=== PATIENT | female | born 1955 | race Caucasian/White ===

== ENCOUNTER → 2019-04-25 11:37 | Outpatient (BNVA) | payer OTHER, SELFPAY | PROVIDERS: Family Provider Nurse Practitioner Family; PCP Nurse Practitioner Family; Visit Provider Nurse Practitioner Family | DX: E03.9 Hypothyroidism, unspecified (principal) | CPT/HCPCS: 80048; 80061; 82044; 83036; 84443 ==

== ENCOUNTER → 2019-05-11 10:38 | Outpatient (BNVA) | payer OTHER, SELFPAY | PROVIDERS: Family Provider Nurse Practitioner Family; PCP Nurse Practitioner Family; Visit Provider Nurse Practitioner Family | DX: R10.2 Pelvic and perineal pain (principal); N94.89 Other specified conditions associated with female genital organs and menstrual cycle; N76.0 Acute vaginitis | CPT/HCPCS: 87070 ==

== ENCOUNTER 2019-05-31 13:53 | Outpatient (CLI) | payer OTHER, SELFPAY ==
--- NOTE | 2019-05-31 14:15 | US_ITS ---
WS: [id number] TRANSABDOMINAL PELVIC AND TRANSVAGINAL PELVIC ULTRASOUND HISTORY: pelvic pain COMPARISON: None available. Uterus: 7.1 cm x 4.5 cm x 3.4 cm. Normal size anteverted uterus. Myometrium is heterogeneous. No incr eased vascularity. Endometrium: 1.3 cm. Abnormal appearance of the endometrium. There is poor distinction between the en dometrium and the junctional zone. Mixed echogenicity along the anterior myometrium measures 9 x 6 x 8 mm. This may be a portion of the endometrium or fibroid. Right ovary: 2.9 cm x 2.3 cm x 1.2 cm. Normal vascularity and size. Left ovary: 2.8 cm x 1.2 cm x 1.4 cm. Normal vascularity and size. No free fluid. US/US pelvic with transvaginal IMPRESSION: 1. Abnormal endometrium and the adjacent anterior junctional zone and myometri um. Changes may be related to endometrial neoplasm with extension into the endo metrial or a submucosal fibroid. Recommend IT BUSINESS SYSTEMS ANALYST consultation. 2. Negative adnexa and ovaries.
== END 2019-05-31 13:54 | disposition home or self-care (01) ==
LOC: RADWPI 13:55
PROVIDERS: Family Provider Nurse Practitioner Family; PCP Nurse Practitioner Family; Visit Provider Nurse Practitioner Family
DX: R10.2 Pelvic and perineal pain (principal)
CPT/HCPCS: 76830; 76856

== ENCOUNTER → 2019-08-02 09:10 | Outpatient (BNVA) | payer OTHER, SELFPAY | PROVIDERS: Family Provider Nurse Practitioner Family; PCP Nurse Practitioner Family; Visit Provider Nurse Practitioner Family | DX: E03.9 Hypothyroidism, unspecified (principal); E11.9 Type 2 diabetes mellitus without complications; Z79.4 Long term (current) use of insulin | CPT/HCPCS: 83036; 84443 ==

== ENCOUNTER → 2019-09-19 09:33 | Outpatient (BNVA) | payer OTHER, SELFPAY | PROVIDERS: Family Provider Nurse Practitioner Family; PCP Nurse Practitioner Family; Visit Provider Nurse Practitioner Family | DX: E03.9 Hypothyroidism, unspecified (principal) | CPT/HCPCS: 84443 ==

== ENCOUNTER → 2019-12-07 10:19 | Outpatient (BNVA) | payer MEDICARE, SELFPAY | PROVIDERS: Family Provider Nurse Practitioner Family; PCP Nurse Practitioner Family; Visit Provider Nurse Practitioner Family | DX: E11.9 Type 2 diabetes mellitus without complications (principal); E03.9 Hypothyroidism, unspecified; I10 Essential (primary) hypertension; Z79.4 Long term (current) use of insulin | CPT/HCPCS: 80053; 83036; 84443 ==

== ENCOUNTER → 2020-03-20 10:03 | Outpatient (BNVA) | payer MEDICARE, SELFPAY | PROVIDERS: Family Provider Nurse Practitioner Family; PCP Nurse Practitioner Family; Visit Provider Nurse Practitioner Family | DX: E03.9 Hypothyroidism, unspecified (principal); E11.9 Type 2 diabetes mellitus without complications; E78.5 Hyperlipidemia, unspecified; I10 Essential (primary) hypertension; Z79.4 Long term (current) use of insulin; F32.9 Major depressive disorder, single episode, unspecified | CPT/HCPCS: 80053; 80061; 82043; 83036; 84443 ==

== ENCOUNTER → 2020-06-26 09:44 | Outpatient (BNVA) | payer MEDICARE, SELFPAY | PROVIDERS: Family Provider Nurse Practitioner Family; PCP Nurse Practitioner Family; Visit Provider Nurse Practitioner Family | DX: E11.9 Type 2 diabetes mellitus without complications (principal); Z79.4 Long term (current) use of insulin | CPT/HCPCS: 82043; 83036 ==

== ENCOUNTER → 2021-01-02 11:01 | Outpatient (BNVA) | payer MEDICARE, SELFPAY | PROVIDERS: Family Provider Nurse Practitioner Family; PCP Nurse Practitioner Family; Visit Provider Nurse Practitioner Family | DX: I10 Essential (primary) hypertension (principal); E03.9 Hypothyroidism, unspecified; E78.5 Hyperlipidemia, unspecified; E11.9 Type 2 diabetes mellitus without complications; Z79.4 Long term (current) use of insulin | CPT/HCPCS: 80053; 80061; 83036; 84443 ==

== ENCOUNTER → 2021-03-20 13:43 | Outpatient (BNVA) | payer MEDICARE, SELFPAY | PROVIDERS: Family Provider Nurse Practitioner Family; PCP Nurse Practitioner Family; Visit Provider Nurse Practitioner Family | DX: R30.9 Painful micturition, unspecified (principal); B37.3 Candidiasis of vulva and vagina | CPT/HCPCS: 81000 ==

== ENCOUNTER → 2021-03-31 08:33 | Outpatient (BNVA) | payer MEDICARE, SELFPAY | PROVIDERS: Family Provider Nurse Practitioner Family; PCP Nurse Practitioner Family; Visit Provider Nurse Practitioner Family | DX: E11.9 Type 2 diabetes mellitus without complications (principal); Z79.4 Long term (current) use of insulin; E03.9 Hypothyroidism, unspecified; E78.2 Mixed hyperlipidemia; I10 Essential (primary) hypertension; R53.83 Other fatigue | CPT/HCPCS: 80053; 80061; 82043; 83036; 84443; 85025 ==

== ENCOUNTER 2021-05-15 14:02 | Outpatient (CLI) | payer MEDICARE, SELFPAY ==
--- NOTE | 2021-05-15 14:45 | US_ITS ---
WS: [id number] THYROID ULTRASOUND HISTORY: R79.89 - Other specified abnormal findings of blood chemi... COMPARISON: None available. Right lobe: 1.2 cm x 1.6 cm x 4.4 cm (w x ap x l). Volume: 4.6 cm3. Normal size and echotexture. No significant are dominant nodules are present. Left lobe: 1.2 cm x 1.4 cm x 3.6 cm (w x ap x l). Volume: 3.0 cm3. Heterogeneous, predominantly hyperechoic gland. No discrete nodules. Variable density throughout the gland. Isthmus: 0.4 cm. There is an ovoid predominantly hyperechoic nodule in the LEFT isthmus measuring 1.1 x 0.5 x 1.2 cm. Similar to the prior study with only minimal increase in size. Smaller nodule in the RIGHT isthmus. US/US thyroid [id number] IMPRESSION: 1. Mildly heterogeneous gland with multiple small bilateral nodules. 2. Hyperechoic nodule in the LEFT isthmus has very slightly increased in size since the prior study now measuring 1.1 x 0.5 x 1.2 cm. Recommend 12 month foll ow-up.
== END 2021-05-15 14:03 | disposition home or self-care (01) ==
PROVIDERS: PCP Nurse Practitioner Family; Visit Provider Nurse Practitioner Family
DX: R79.89 Other specified abnormal findings of blood chemistry (principal); E04.2 Nontoxic multinodular goiter
CPT/HCPCS: 76536

== ENCOUNTER → 2021-05-22 10:59 | Outpatient (BNVA) | payer MEDICARE, SELFPAY | PROVIDERS: PCP Nurse Practitioner Family; Visit Provider Nurse Practitioner Family | DX: E03.9 Hypothyroidism, unspecified (principal); L71.9 Rosacea, unspecified | CPT/HCPCS: 84443 ==

== ENCOUNTER 2021-06-10 06:30 | Day surgery (SDC) | payer MEDICARE, SELFPAY ==
[2021-06-08 14:52] VITALS: BMI 29.9
[2021-06-10] MEDS: sodium chloride 0.9% 1,000 ML 30 ML IV (07:15)
[2021-06-10 07:16] VITALS: BP 198/95; PULSE 69; RESP 17; TEMP 36.9; O2SAT 97
--- NOTE | 2021-06-10 07:23 | ANES.PREANE2 ---
Pre-Anesthetic Assessment Height/Weight: Height 1.65 m Weight 81.647 kg Temp Pulse Resp BP Pulse Ox 98.5 F 69 17 198/95 97 06/10/21 07:16 06/10/21 07:16 06/10/21 07:16 06/10/21 07:16 06/10/21 07:16 Preop Diagnosis: diagnostic Operation Date: 06/10/21 08:00 Proposed Procedures p EGD Dilation W/ Balloon [id number]/r13.10/r10.32(Not Applicable) - Lauro Landa MD s Colonoscopy(Not Applicable) - Lauro Landa MD Familial anesthetic complications: None Was Beta Diana taken within 24 hours: Yes Was Clonidine taken within 24 hours: N/A Last intake: Intake Last Liquid Date 06/09/21 Last Liquid Time 20:00 Last Solid Date 06/08/21 Last Solid Time 19:00 Social No alcohol and No tobacco Exam alert, oriented x 3, clear to auscultation bilaterally and regular rate & rhythm Airway Submandibular: within normal limits Cervical ROM: within normal limits Mallampati: Class II Dentition: full History/ROS No significant complaints Pulmonary None reported CV/HEM Hypertension None reported Hepatic None reported GI Gastroesophageal Reflux Disease Esophageal stricture Metabolic Diabetes Mellitus and Thyroid Disease [facility] [place] None reported Neuropsych Depression Anesthetic Plan ASA status: 2 Anesthesia: Anesthesia Evaluation, General and MAC Other: I discussed with the patient risks, goals, and benefits of MAC and general anesthesia. We discussed spectrum of MAC anesthesia including conversion to general as well as possibility of recall of intraoperative stimuli including discomfort/pain. Patient agrees to proceed with MAC. Risk of > 500 ml blood loss (7ml/kg in children): No Medications/Allergies Home Medications Medication Instructions Recorded Confirmed Last Taken Type levothyroxine 75 mcg capsule 75 mcg PO DAILY #90 cap 04/03/21 06/10/21 06/09/21 Rx dupilumab 300 mg/2 mL subcutaneous 300 mg SUBCUT .COMPLEX ml 04/24/21 06/10/21 06/09/21 History pen injector (Dupixent) ketoconazole 2 % shampoo See Rx Instructions .ROUTE 05/14/21 06/10/21 06/09/21 Rx .COMPLEX #120 ml amlodipine 10 mg tablet 10 mg PO DAILY 06/08/21 06/10/21 06/09/21 History hydrochlorothiazide 25 mg tablet 25 mg PO DAILY 06/08/21 06/10/21 06/09/21 History lisinopril 40 mg tablet 40 mg PO BID 06/08/21 06/10/21 06/09/21 History lovastatin 40 mg tablet 40 mg PO DAILY 06/08/21 06/10/21 06/09/21 History metformin 1,000 mg tablet 1,000 mg PO BID 06/08/21 06/10/21 06/09/21 History metoprolol tartrate 100 mg tablet 100 mg PO DAILY 06/08/21 06/10/21 06/09/21 History omeprazole 40 mg capsule,delayed 40 mg PO DAILY 06/08/21 06/10/21 06/09/21 History release Allergies Allergy/AdvReac Type Severity Reaction Status Date / Time fluconazole [From Diflucan] Allergy Intermediate ALGY-Rash Verified 06/10/21 07:15 [facility] Anesthesia Medical History Depression GERD (gastroesophageal reflux disease) HTN (hypertension), benign Hyperlipemia, mixed Hypothyroidism Type 2 diabetes mellitus without complication, with long-term current use of insulin Surgical History History of colonoscopy History of tubal ligation Social History Smoking and tobacco status: never smoked Lives independently: Yes Household members: spouse Housing: House Marital status: Data Anesthesia Cardiac Studies: No Data to Display
--- NOTE | 2021-06-10 07:52 | W.PM.OPSFHP ---
Same Day Surgery H&P Indication for Procedure/HPI DATE OF PROCEDURE: June 10, 2021 CHIEF COMPLAINT/INDICATIONFOR SURGICAL PROCEDURE: egd/colon PREOP DIAGNOSIS: diagnostic PLANNED PROCEDURE: Operation Date: 06/10/21 08:00 Proposed Procedures p EGD Dilation W/ Balloon [id number]/r13.10/r10.32(Not Applicable) - Lauro Landa MD s Colonoscopy(Not Applicable) - Lauro Landa MD Medications/Allergies* Home Medications Medication Instructions Recorded Confirmed Type dupilumab 300 mg/2 mL subcutaneous 300 mg SUBCUT .COMPLEX ml 04/24/21 06/10/21 History pen injector (Dupixent) amlodipine 10 mg tablet 10 mg PO DAILY 06/08/21 06/10/21 History hydrochlorothiazide 25 mg tablet 25 mg PO DAILY 06/08/21 06/10/21 History lisinopril 40 mg tablet 40 mg PO BID 06/08/21 06/10/21 History lovastatin 40 mg tablet 40 mg PO DAILY 06/08/21 06/10/21 History metformin 1,000 mg tablet 1,000 mg PO BID 06/08/21 06/10/21 History metoprolol tartrate 100 mg tablet 100 mg PO DAILY 06/08/21 06/10/21 History omeprazole 40 mg capsule,delayed 40 mg PO DAILY 06/08/21 06/10/21 History release Allergies/Adverse Reactions Allergy/AdvReac Type Severity Reaction Status Date / Time fluconazole [From Diflucan] Allergy Intermediate ALGY-Rash Verified 06/10/21 07:15 Pertinent History/Comorbid Conditions* Medical History (Updated 05/22/21 @ 10:54 by DANIEL Cortes) Depression GERD (gastroesophageal reflux disease) HTN (hypertension), benign Hyperlipemia, mixed Hypothyroidism Type 2 diabetes mellitus without complication, with long-term current use of insulin Surgical History (Updated 04/24/21 @ 09:26 by Lauro Landa MD) History of colonoscopy History of tubal ligation Social History Smoking and tobacco status: never smoked Lives independently: Yes Household members: spouse Housing: House Marital status: Pertinent Exam Findings alert, oriented x 3 and regular rate & rhythm Recommendations Surgery/Procedure today Coding Level of Care Code Acute 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
[2021-06-10 08:32] VITALS: BP 163/81; PULSE 64; RESP 18; TEMP 36.1; O2SAT 98
--- NOTE | 2021-06-10 08:34 | ANE.PACU2 ---
Inpatient post-anesthesia follow up: Airway intact: Yes Vital signs: Temperature 97.0 F Pulse Rate 64 Respiratory Rate 18 Blood Pressure 163/81 Pulse Oximetry 98 Oxygen Delivery Me thod Room Air Oxygen Flow Rate Fraction of Inspir ed Oxygen Hydration adequate: Yes Nausea and vomiting: No Pain level: 1 Mental status: Baseline
[2021-06-10 08:42] VITALS: BP 178/85; PULSE 63; RESP 18; TEMP 36.3; O2SAT 96
--- NOTE | 2021-06-10 17:38 | ANE.PACU2 ---
Inpatient post-anesthesia follow up: Airway intact: Yes Vital signs: Temperature 97.4 F Pulse Rate 63 Respiratory Rate 18 Blood Pressure 178/85 Pulse Oximetry 96 Oxygen Delivery Me thod Room Air Oxygen Flow Rate Fraction of Inspir ed Oxygen Hydration adequate: Yes Nausea and vomiting: No Pain level: 1 Mental status: Baseline
== END 2021-06-10 09:03 | disposition home or self-care (01) ==
PROVIDERS: PCP Nurse Practitioner Family; Visit Provider Surgery
PROC: 0DJD8ZZ Inspection of Lower Intestinal Tract, Via Natural or Artificial Opening Endoscopic (ICD-10-PCS; CPT 45378; 2021-06-10 08:00)
DX: R10.32 Left lower quadrant pain (principal); R13.10 Dysphagia, unspecified; K57.30 Diverticulosis of large intestine without perforation or abscess without bleeding; D12.5 Benign neoplasm of sigmoid colon; D12.8 Benign neoplasm of rectum; K64.8 Other hemorrhoids; K44.9 Diaphragmatic hernia without obstruction or gangrene; K29.70 Gastritis, unspecified, without bleeding; E11.9 Type 2 diabetes mellitus without complications; K21.9 Gastro-esophageal reflux disease without esophagitis; Z79.84 Long term (current) use of oral hypoglycemic drugs; E78.2 Mixed hyperlipidemia; E03.9 Hypothyroidism, unspecified
CPT/HCPCS: 43239; 45380; 82274; 83630; 87493; 87506; 88305; J2704; J7030

== ENCOUNTER → 2021-06-23 13:25 | Outpatient (BNVA) | payer MEDICARE, SELFPAY | PROVIDERS: PCP Nurse Practitioner Family; Visit Provider Surgery | DX: Z09 Encounter for follow-up examination after completed treatment for conditions other than malignant neoplasm (principal); K21.9 Gastro-esophageal reflux disease without esophagitis; K44.9 Diaphragmatic hernia without obstruction or gangrene | CPT/HCPCS: 99212 ==

== ENCOUNTER 2021-06-30 08:21 | Outpatient (CLI) | payer MEDICARE, SELFPAY ==
--- NOTE | 2021-06-30 08:32 | FL_ITS ---
WS: [id number] FL upper GI w air* [id number] REASON FOR EXAM: gastroesophageal reflux disease FLUOROSCOPY TIME: 3.1 # OF SPOT FILMS: 35 FINDINGS: GI tract was evaluated from the hypopharynx to the ligament of Treitz. Patient was evaluated in the u pright and prone TRUJILLO positions. Proximal and mid esophagus were normal. There was a sizable hiatal hernia and tertiary contractions in the distal most esophagus. The stomach was of normal contour demonstrated a normal mucosal pattern. The pylorus duodenal bulb and duodenal sweep were unremarkable. FL/FL upper GI w air* [id number] IMPRESSION: Large hiatal hernia. Tertiary contractions in the distal most esophagus.
== END 2021-06-30 08:22 | disposition home or self-care (01) ==
PROVIDERS: PCP Nurse Practitioner Family; Visit Provider Surgery
DX: K21.9 Gastro-esophageal reflux disease without esophagitis (principal); K44.9 Diaphragmatic hernia without obstruction or gangrene
CPT/HCPCS: 74246

== ENCOUNTER → 2021-07-02 13:00 | Outpatient (BNVA) | payer MEDICARE, SELFPAY | PROVIDERS: PCP Nurse Practitioner Family; Visit Provider Surgery | DX: K44.9 Diaphragmatic hernia without obstruction or gangrene (principal) | CPT/HCPCS: 99213 ==

== ENCOUNTER → 2022-04-08 09:15 | Outpatient (BNVA) | payer MEDICARE, SELFPAY | PROVIDERS: PCP Nurse Practitioner Family; Visit Provider Nurse Practitioner Family | DX: E11.9 Type 2 diabetes mellitus without complications (principal); Z79.4 Long term (current) use of insulin; I10 Essential (primary) hypertension | CPT/HCPCS: 80053; 80061; 83036; 84443 ==

== ENCOUNTER → 2022-07-08 10:03 | Outpatient (BNVA) | payer MEDICARE, SELFPAY | PROVIDERS: PCP Nurse Practitioner Family; Visit Provider Nurse Practitioner Family | DX: E11.9 Type 2 diabetes mellitus without complications (principal); Z79.4 Long term (current) use of insulin | CPT/HCPCS: 83036 ==

== ENCOUNTER → 2022-10-14 10:28 | Outpatient (BNVA) | payer MEDICARE, SELFPAY | PROVIDERS: PCP Nurse Practitioner Family; Visit Provider Nurse Practitioner Family | DX: I10 Essential (primary) hypertension (principal); E11.9 Type 2 diabetes mellitus without complications; Z79.4 Long term (current) use of insulin | CPT/HCPCS: 80053; 80061; 83036 ==

== ENCOUNTER → 2022-11-03 08:03 | Outpatient (BNVA) | payer MEDICARE, SELFPAY | PROVIDERS: PCP Nurse Practitioner Family; Referring Provider Nurse Practitioner Family; Visit Provider Nurse Practitioner Family | DX: L40.0 Psoriasis vulgaris (principal); L40.59 Other psoriatic arthropathy; L82.1 Other seborrheic keratosis; D48.5 Neoplasm of uncertain behavior of skin; L81.4 Other melanin hyperpigmentation; L57.8 Other skin changes due to chronic exposure to nonionizing radiation | CPT/HCPCS: 11102; 99204 ==

== ENCOUNTER → 2023-01-04 12:59 | Outpatient (BNVA) | payer MEDICARE, SELFPAY | PROVIDERS: PCP Nurse Practitioner Family; Visit Provider Nurse Practitioner Family | DX: L40.0 Psoriasis vulgaris (principal); L40.59 Other psoriatic arthropathy; L82.1 Other seborrheic keratosis; L81.4 Other melanin hyperpigmentation; L57.8 Other skin changes due to chronic exposure to nonionizing radiation | CPT/HCPCS: 99214 ==

== ENCOUNTER 2023-01-12 13:52 | Outpatient (CLI) | payer MEDICARE, SELFPAY ==
--- NOTE | 2023-01-12 14:00 | XR_ITS ---
WS: [id number] SCREENING DEXA SCAN [employer] CLINICAL INFORMATION: M81.0 - Age-related osteoporosis without current patholog... COMPARISON: None. FINDINGS: The L1-L4 bone mineral density measures 1.232 g/cm2. This corresponds to a T score score of 0.4 and Z score of 1.5. Left femoral neck bone mineral density measures 0.964 g/cm2. This corresponds to a T score of -0.3 an d Z score of 0.6. Right femoral neck bone mineral density measures 0.913 g/cm2. This corresponds to a T score -0.8of an d Z score of 0.2. Mean femoral neck bone mineral density measures 0.938 g/cm2. This corresponds to a T score of -0.6 an d Z score of 0.4. IMPRESSION: Normal bone mineralization. Patient's FRAX calculated 10 year probability for major osteoporotic fracture is 18.3% and osteoporot ic hip fracture is 1.9%.
--- NOTE | 2023-01-12 14:09 | MM_ITS ---
WS: [id number] BILATERAL 3D TOMOSYNTHESIS DIGITAL SCREENING MAMMOGRAPHY WITH CAD CLINICAL INFORMATION: Z12.39 - Encounter for other screening for malignant neop... HISTORY: Screening mammogram. No current complaints. COMPARISON: 2018 TECHNIQUE: Bilateral CC and MLO views. FINDINGS: Scattered fibroglandular densities bilaterally. No suspicious focal mass, asymmetry, calcifications, or architectural distortion. No evidence of malignancy. A few incidental calcifications. IMPRESSION: MM/[place] [id number] BI-RADS: 2-Benign FOLLOW UP: 1 Year Follow-up Recommend return to annual screening mammography.
== END 2023-01-12 13:53 | disposition home or self-care (01) ==
PROVIDERS: PCP Nurse Practitioner Family; Visit Provider Nurse Practitioner Family
DX: M81.0 Age-related osteoporosis without current pathological fracture (principal); Z12.31 Encounter for screening mammogram for malignant neoplasm of breast
CPT/HCPCS: 77063; 77067; 77080

== ENCOUNTER → 2023-02-07 10:24 | Outpatient (BNVA) | payer MEDICARE, SELFPAY | PROVIDERS: PCP Nurse Practitioner Family; Visit Provider Nurse Practitioner Family | DX: L40.0 Psoriasis vulgaris (principal); L40.59 Other psoriatic arthropathy; L82.1 Other seborrheic keratosis; L81.4 Other melanin hyperpigmentation; L57.8 Other skin changes due to chronic exposure to nonionizing radiation; L57.0 Actinic keratosis | CPT/HCPCS: 17000; 17110; 99214 ==

== ENCOUNTER → 2023-02-10 08:59 | Outpatient (BNVA) | payer MEDICARE, SELFPAY | PROVIDERS: PCP Nurse Practitioner Family; Visit Provider Nurse Practitioner Family | DX: E11.9 Type 2 diabetes mellitus without complications (principal); E03.9 Hypothyroidism, unspecified; I10 Essential (primary) hypertension; E78.5 Hyperlipidemia, unspecified | CPT/HCPCS: 80053; 80061; 83036; 84443 ==

== ENCOUNTER → 2023-04-11 09:29 | Outpatient (BNVA) | payer MEDICARE, SELFPAY | PROVIDERS: PCP Nurse Practitioner Family; Visit Provider Nurse Practitioner Family | DX: L40.0 Psoriasis vulgaris (principal); L40.59 Other psoriatic arthropathy; L82.1 Other seborrheic keratosis; L81.4 Other melanin hyperpigmentation; L57.8 Other skin changes due to chronic exposure to nonionizing radiation; L72.0 Epidermal cyst | CPT/HCPCS: 99214 ==

== ENCOUNTER → 2023-06-27 15:14 | Outpatient (BNVA) | payer MEDICARE, SELFPAY | PROVIDERS: PCP Nurse Practitioner Family; Visit Provider Nurse Practitioner Family | DX: E11.9 Type 2 diabetes mellitus without complications; Z79.4 Long term (current) use of insulin; I10 Essential (primary) hypertension; R21 Rash and other nonspecific skin eruption | CPT/HCPCS: 80053; 80061; 83036; 83721; 84443; 86003; 86008 ==

== ENCOUNTER → 2023-07-11 09:22 | Outpatient (BNVA) | payer MEDICARE, SELFPAY | PROVIDERS: PCP Nurse Practitioner Family; Visit Provider Nurse Practitioner Family | DX: L40.59 Other psoriatic arthropathy (principal); Z91.014 Allergy to mammalian meats | CPT/HCPCS: 99214 ==

== ENCOUNTER → 2023-08-03 10:30 | Outpatient (BNVA) | payer MEDICARE, SELFPAY | PROVIDERS: PCP Nurse Practitioner Family; Visit Provider Nurse Practitioner Family | DX: Z79.4 Long term (current) use of insulin (principal); E11.9 Type 2 diabetes mellitus without complications; E78.5 Hyperlipidemia, unspecified | CPT/HCPCS: 80061 ==

== ENCOUNTER 2023-10-11 09:49 | Outpatient (CLI) | payer MEDICARE, SELFPAY ==
[2023-10-11 11:07] LABS: Creatine Phosphokinase 91 U/L (26-192)
[2023-10-12 14:34] LABS: JO-1 Antibody <1.0 NEG AI (<1.0 NEG)
[2023-10-12 15:41] LABS: Anti-Nuclear Antibody Screen NEGATIVE (NEGATIVE)
== END 2023-10-11 09:50 | disposition home or self-care (01) ==
PROVIDERS: PCP Nurse Practitioner Family; Visit Provider Nurse Practitioner Family
DX: L40.0 Psoriasis vulgaris (principal); Z79.899 Other long term (current) drug therapy; L40.59 Other psoriatic arthropathy; Z91.014 Allergy to mammalian meats; M33.12 Other dermatomyositis with myopathy; L82.0 Inflamed seborrheic keratosis; Z78.9 Other specified health status
CPT/HCPCS: 36415; 82550; 84182; 86038; 86235

== ENCOUNTER → 2023-11-03 11:54 | Outpatient (BNVA) | payer MEDICARE, SELFPAY | PROVIDERS: PCP Nurse Practitioner Family; Visit Provider Nurse Practitioner Family | DX: I10 Essential (primary) hypertension (principal); E11.9 Type 2 diabetes mellitus without complications; E03.9 Hypothyroidism, unspecified; R53.83 Other fatigue | CPT/HCPCS: 80053; 80061; 83036; 84443; 85025 ==

== ENCOUNTER → 2023-11-21 10:54 | Outpatient (BNVA) | payer MEDICARE, SELFPAY | PROVIDERS: PCP Nurse Practitioner Family; Visit Provider Nurse Practitioner Family | DX: L30.9 Dermatitis, unspecified (principal); L40.8 Other psoriasis | CPT/HCPCS: 11104; 99213 ==

== ENCOUNTER → 2023-11-30 09:19 | Outpatient (BNVA) | payer MEDICARE, SELFPAY | PROVIDERS: PCP Nurse Practitioner Family; Visit Provider Nurse Practitioner Family | DX: I10 Essential (primary) hypertension (principal); Z79.4 Long term (current) use of insulin; R74.8 Abnormal levels of other serum enzymes; E11.9 Type 2 diabetes mellitus without complications | CPT/HCPCS: 80053; 80061 ==

== ENCOUNTER → 2023-12-01 10:13 | Outpatient (BNVA) | payer MEDICARE, SELFPAY | PROVIDERS: PCP Nurse Practitioner Family; Visit Provider Nurse Practitioner Family | DX: L23.9 Allergic contact dermatitis, unspecified cause (principal); Z48.02 Encounter for removal of sutures; L40.0 Psoriasis vulgaris | CPT/HCPCS: 99214 ==

== ENCOUNTER → 2023-12-30 09:07 | Outpatient (BNVA) | payer MEDICARE, SELFPAY | PROVIDERS: PCP Nurse Practitioner Family; Visit Provider Nurse Practitioner Family | DX: N89.8 Other specified noninflammatory disorders of vagina (principal) | CPT/HCPCS: 81000 ==

== ENCOUNTER → 2024-03-01 10:19 | Outpatient (BNVA) | payer MEDICARE, SELFPAY | PROVIDERS: PCP Nurse Practitioner Family; Visit Provider Nurse Practitioner Family | DX: L40.9 Psoriasis, unspecified (principal) | CPT/HCPCS: 99214 ==

== ENCOUNTER → 2024-03-27 13:35 | Outpatient (BNVA) | payer MEDICARE, SELFPAY | PROVIDERS: PCP Nurse Practitioner Family; Visit Provider Nurse Practitioner Family | DX: I10 Essential (primary) hypertension (principal); E11.9 Type 2 diabetes mellitus without complications; E78.5 Hyperlipidemia, unspecified | CPT/HCPCS: 80053; 80061; 83036; 83721 ==

== ENCOUNTER → 2024-05-04 09:39 | Outpatient (BNVA) | payer MEDICARE, SELFPAY | PROVIDERS: PCP Nurse Practitioner Family; Visit Provider Nurse Practitioner Family | DX: Z79.4 Long term (current) use of insulin (principal); E11.9 Type 2 diabetes mellitus without complications; I10 Essential (primary) hypertension | CPT/HCPCS: 80053; 80061; 84443 ==

== ENCOUNTER → 2024-06-13 15:06 | Outpatient (BNVA) | payer MEDICARE, SELFPAY | PROVIDERS: PCP Nurse Practitioner Family; Visit Provider Nurse Practitioner Family | DX: N94.9 Unspecified condition associated with female genital organs and menstrual cycle (principal); N89.8 Other specified noninflammatory disorders of vagina | CPT/HCPCS: 81000; 87070; 87086; 87205 ==

== ENCOUNTER → 2024-07-02 10:46 | Outpatient (BNVA) | payer MEDICARE, SELFPAY | PROVIDERS: PCP Nurse Practitioner Family; Visit Provider Nurse Practitioner Family | DX: L40.0 Psoriasis vulgaris (principal); L44.8 Other specified papulosquamous disorders; L57.0 Actinic keratosis | CPT/HCPCS: 17000; 99214 ==

== ENCOUNTER 2024-07-11 10:06 | Outpatient (CLI) | payer MEDICARE, SELFPAY ==
--- NOTE | 2024-07-11 10:30 | US_ITS ---
WS: [id number] US pelvic complete* [id number] HISTORY: N94.9 - Unspecified condition associated with female humble... COMPARISON: 05/30/2021 Uterus: 10.8 cm x 7.6 cm x 6.0 cm. Uterus is enlarged and anteverted. Heterogeneous appearance of the endometrium and myometrium. There is poor distinction between the endometrium and the myometrium. Progression of findings since the prior study. Endometrium: Discrete endometrium is not identified. Uterus is enlarged and globular with heterogeneous appearance. Numerous cystic structures throughout the entire uterus obscuring the endometrium. Neither ovary is identified. No free fluid in the cul-de-sac. US/US pelvic complete* [id number] IMPRESSION: 1. Progressively abnormal endometrium and myometrium since 05/31/2019. Distinct endometrium is not visualized. Differential includes fibroid uterus with extens ion into the endometrium. Endometrial neoplasm is not excluded. Recommend evalu ation by HR SHARED SERVICES CONSULTANT with biopsy or hysterectomy. 2. Neither ovary is identified.
== END 2024-07-11 10:07 | disposition home or self-care (01) ==
PROVIDERS: PCP Nurse Practitioner Family; Visit Provider Nurse Practitioner Family
DX: N94.9 Unspecified condition associated with female genital organs and menstrual cycle (principal); R93.89 Abnormal findings on diagnostic imaging of other specified body structures; N85.2 Hypertrophy of uterus
CPT/HCPCS: 76856

== ENCOUNTER → 2024-08-09 09:27 | Outpatient (BNVA) | payer MEDICARE, SELFPAY | PROVIDERS: PCP Nurse Practitioner Family; Visit Provider Nurse Practitioner Family | DX: E11.9 Type 2 diabetes mellitus without complications (principal); Z79.4 Long term (current) use of insulin | CPT/HCPCS: 80053; 82043; 83036 ==

== ENCOUNTER → 2024-08-30 16:08 | Outpatient (BNVA) | payer MEDICARE, SELFPAY | PROVIDERS: PCP Nurse Practitioner Family; Visit Provider Obstetrics & Gynecology | DX: Z01.419 Encounter for gynecological examination (general) (routine) without abnormal findings (principal) | CPT/HCPCS: 87624 ==

== ENCOUNTER → 2024-09-07 09:12 | Outpatient (BNVA) | payer MEDICARE, SELFPAY | PROVIDERS: PCP Nurse Practitioner Family; Visit Provider Nurse Practitioner Family | DX: Z01.89 Encounter for other specified special examinations (principal); Z79.4 Long term (current) use of insulin; E11.9 Type 2 diabetes mellitus without complications; R53.83 Other fatigue; E78.5 Hyperlipidemia, unspecified; E03.9 Hypothyroidism, unspecified | CPT/HCPCS: 80053; 83036; 84439; 84443; 85025 ==

== ENCOUNTER 2024-09-24 09:47 | Outpatient (CLI) | payer MEDICARE, SELFPAY ==
--- NOTE | 2024-09-24 10:00 | MM_ITS ---
WS: [id number] BILATERAL 3D TOMOSYNTHESIS DIGITAL SCREENING MAMMOGRAPHY WITH CAD CLINICAL INFORMATION: Z12.39 - Encounter for other screening for malignant neop... HISTORY: Screening mammogram. No current complaints. COMPARISON: 2022 TECHNIQUE: Bilateral CC and MLO views. FINDINGS: Scattered fibroglandular densities bilaterally. No suspicious focal mass, asymmetry, calcifications, or architectural distortion. No evidence of malignancy. Lucent centered calcification RIGHT breast MM/MM scr BI tomosynthesis [id number] IMPRESSION: DENSITY: There are scattered areas of fibroglandular density. BI-RADS: 2 - Benign. FOLLOW UP: 1 Year Follow-up Recommend return to annual screening mammography.
== END 2024-09-24 09:48 | disposition home or self-care (01) ==
LOC: RAD 09:48
PROVIDERS: PCP Nurse Practitioner Family; Visit Provider Nurse Practitioner Family
DX: Z12.31 Encounter for screening mammogram for malignant neoplasm of breast (principal); R92.1 Mammographic calcification found on diagnostic imaging of breast
CPT/HCPCS: 77063; 77067

== ENCOUNTER → 2024-10-02 11:09 | Outpatient (BNVA) | payer MEDICARE, SELFPAY | PROVIDERS: PCP Nurse Practitioner Family; Visit Provider Obstetrics & Gynecology | DX: R10.2 Pelvic and perineal pain (principal); N85.2 Hypertrophy of uterus | CPT/HCPCS: 76830 ==

== ENCOUNTER → 2024-11-06 10:53 | Outpatient (BNVA) | payer MEDICARE, SELFPAY | PROVIDERS: PCP Nurse Practitioner Family; Visit Provider Nurse Practitioner Family | DX: Z11.52 Encounter for screening for COVID-19 (principal) | CPT/HCPCS: 87426 ==

== ENCOUNTER → 2024-11-08 10:40 | Outpatient (BNVA) | payer MEDICARE, SELFPAY | PROVIDERS: PCP Nurse Practitioner Family; Visit Provider Nurse Practitioner Family | DX: L40.0 Psoriasis vulgaris (principal); L44.8 Other specified papulosquamous disorders | CPT/HCPCS: 99214 ==

== ENCOUNTER 2024-11-16 12:46 | Outpatient (CLI) | payer MEDICARE, SELFPAY ==
--- NOTE | 2024-11-16 13:00 | MR_ITS ---
WS: [id number] MRI PELVIS WITH AND WITHOUT CONTRAST. COMPARISON: Prior ultrasound 07/11/2024, 10/02/2024 Multiplanar, multisequence imaging is performed with and without contrast. Sagittal and axial T1 fat sat sequences post-MultiHance 18 cc IV. Uterus is enlarged and anteverted measuring 10.4 x 6.8 x 8.1 cm. There is a large complex mass centered within the uterus expanding the endometrial cavity. There are both cystic and solid components in the central uterus. Central uterine mass measures 6.9 x 5.4 x 7.7 cm. The myometrium is markedly thinned. On the postcontrast imaging a large central mass within the uterine cavity does enhance. There are a few areas scattered throughout of low signal which do not enhance. The cervix is closed. There is no extension of soft tissue mass or abnormal enhancement into the cervical canal. Small atrophic ovaries. RIGHT ovary measures 1.9 x 1.2 cm. LEFT ovary measures 2.0 x 1.7 cm. There is no ascites identified. No adenopathy identified. MR/MR pelvis wo/w con [id number] IMPRESSION: 1. Large complex mass with enhancement expanding the endometrial cavity. Mass measures 6.9 x 5.4 x 7.7 cm. Favor this is an endometrial mass. Large leiomyoma or leiomyosarcoma would be difficult to exclude. Uterine mass needs to be surg ically excised. 2. No ascites. 3. No adenopathy in the pelvis.
== END 2024-11-16 12:47 | disposition home or self-care (01) ==
LOC: RAD 12:49
PROVIDERS: PCP Nurse Practitioner Family; Visit Provider Obstetrics & Gynecology
DX: R93.89 Abnormal findings on diagnostic imaging of other specified body structures (principal)
CPT/HCPCS: 72197

== ENCOUNTER → 2024-11-22 08:40 | Outpatient (BNVA) | payer MEDICARE, SELFPAY | PROVIDERS: PCP Nurse Practitioner Family; Visit Provider Nurse Practitioner Family | DX: I10 Essential (primary) hypertension (principal); E11.9 Type 2 diabetes mellitus without complications | CPT/HCPCS: 80053; 83036; 84443 ==

== ENCOUNTER → 2024-12-12 15:28 | Outpatient (BNVA) | payer MEDICARE, SELFPAY | PROVIDERS: PCP Nurse Practitioner Family; Visit Provider Nurse Practitioner Family | DX: N90.89 Other specified noninflammatory disorders of vulva and perineum (principal) | CPT/HCPCS: 87070; 87205; 87252 ==